=== PATIENT | male | born 1990 | race African-American/Black ===

== ENCOUNTER 2024-01-31 12:17 | Emergency (ER) | payer SELFPAY ==
[2024-01-31 12:22] VITALS: BP 140/90; PULSE 69; RESP 20; TEMP 98.6; BMI 17.7
[2024-01-31] MEDS ORDERED: KETOROLAC TROMETHAMINE 30 MG/1 ML VIAL ONE (12:49)
[2024-01-31] MEDS ORDERED: AMOX TR/POT CLAV 875MG/125MG TABLETS (FP) ONE (12:49)
[2024-01-31] MEDS ORDERED: ACETAMINOPHEN 325 MG TABLET (FP) ONE (12:49)
[2024-01-31] MEDS: AMOX TR/POT CLAV 875MG/125MG TABLETS (FP) PO ONE (12:57)
[2024-01-31] MEDS: ACETAMINOPHEN 500 MG TABLET (FP) PO ONE (12:57)
[2024-01-31] MEDS: KETOROLAC TROMETHAMINE 30 MG/1 ML VIAL IM ONE (12:57)
== END 2024-01-31 13:35 | disposition home or self-care (01) ==
LOC: JERFT 12:17
PROC: 3E0233Z Introduction of Anti-inflammatory into Muscle, Percutaneous Approach (ICD-10-PCS; principal; 2024-01-31)
DX: K04.7 Periapical abscess without sinus (principal); K02.9 Dental caries, unspecified; K08.89 Other specified disorders of teeth and supporting structures
CPT/HCPCS: 99284-25